=== PATIENT | male | born 1955 | race Two or more races ===

== ENCOUNTER 2023-05-14 16:14 | Emergency (ER) | payer OTHER, MEDICAID ==
[~2023-05-14] VITALS: Ht 170.2 cm; Wt 106.9 kg
[2023-05-14 16:52] VITALS: BP 122/94; PULSE 86; RESP 18; TEMP 97.2; O2SAT 96
[2023-05-14] MEDS ORDERED: FLUORESCEIN SOD OPTH TEST STRIP OP ONE (18:00)
[2023-05-14] MEDS ORDERED: TETRACAINE HCL 0.5% OPTH(EYE) SOLN 4ML EACHEYE ONE (18:00)
== END 2023-05-14 18:24 | disposition home or self-care (01) ==
LOC: ER 16:14
DX: S05.02XA Injury of conjunctiva and corneal abrasion without foreign body, left eye, initial encounter (principal); S05.01XA Injury of conjunctiva and corneal abrasion without foreign body, right eye, initial encounter; W22.8XXA Striking against or struck by other objects, initial encounter; Y93.89 Activity, other specified; Y92.89 Other specified places as the place of occurrence of the external cause; Y99.8 Other external cause status
CPT/HCPCS: 70450; 82962